=== PATIENT | female | born 1960 | race American Indian/Alaskan Native ===

== ENCOUNTER 2017-07-23 14:29 | Emergency (ER) | payer MEDICAID ==
[2017-07-23] MEDS ORDERED: MethylPREDNISolone 40 mg Vial IVP STA (16:08)
[2017-07-23] MEDS ORDERED: DiphenhydrAMINE 50 mg/ml Inj IVP STA (16:08)
[2017-07-23] MEDS ORDERED: MethylPREDNISolone 40 mg Vial ONE (16:30)
[2017-07-23] MEDS ORDERED: DiphenhydrAMINE 50 mg/ml Inj ONE (16:30)
[2017-07-23 16:39] LABS: BASO % 0.5 % (0.0-2.0); EOS # 0.2 K/uL (0.0-0.7); EOS % 3.6 % (0.0-4.0); HEMOGLOBIN 12.9 g/dL (11.0-16.0); LYMPH # 1.2 K/uL (1.0-4.3); LYMPH % 21.8 % (20.0-40.0); MEAN CELL VOLUME 88.2 fL (81.0-99.0); MEAN CORPUSCULAR HEMOGLOBIN 29.9 pg (27.0-31.0); MEAN CORPUSCULAR HGB CONC 33.9 g/dL (33.0-37.0); MEAN PLATELET VOLUME 8.3 fL (7.2-11.7); MONO # 0.5 K/uL (0.0-0.8); MONO % 8.3 % (0.0-10.0); NEUT # 3.8 K/uL (1.8-7.0); NEUT % 65.8 % (50.0-75.0); NRBC % 0.1 % (0.0-2.0); RBC 4.31 Mil/uL (3.80-5.20); RED CELL DISTRIBUTION WIDTH 14.9 % (11.5-14.5); WHITE BLOOD COUNT 5.7 K/uL (4.8-10.8)
[2017-07-23 16:49] LABS: ALB/GLOB RATIO 1.2 (1.0-2.1); ALBUMIN 3.8 g/dL (3.5-5.0); ALT/SGPT 24 U/L (9-52); AST/SGOT 24 U/L (14-36); BLOOD UREA NITROGEN 12 mg/dL (7-17); CALCIUM 9.8 mg/dl (8.6-10.4); GFR AFRICAN-AMERICAN > 60; GFR NON-AFRICAN AMERICAN 52
[2017-07-23] MEDS ORDERED: Potassium Chloride 20 mEq/15 ml LIQ UD PO STA (17:39)
--- NOTE | 2017-07-23 17:43 | C.PDOC ---
History Of Present Illness 57-year-old female, presents to the emergency department with complaints of dizziness intermittently for the past few days. Patient also notes her arms and legs feel "heavy." Patient also complains of an itchy, foul smelling, and weeping rash that started a few days ago, after she ate "bad potato salad." Patient also notes she recently used a cheap hair dye, which may have attributed to the symptoms. Denies fevers, chills, chest pain, shortness of breath, back pain, numbness/weakness, slurred speech, visual changes, or any other associated symptoms. Time Seen by Provider: 07/23/17 15:12 Chief Complaint (Nursing): Dizziness/Lightheaded History Per: Patient History/Exam Limitations: no limitations Past Medical History Reviewed: Historical Data, Nursing Documentation, Vital Signs Vital Signs: Last Vital Signs Temp 98.1 F 07/23/17 19:10 Pulse 88 07/23/17 19:10 Resp 16 07/23/17 19:10 BP 145/82 07/23/17 19:10 Pulse Ox 99 07/25/17 03:02 - Medical History PMH: HTN Family History: States: [place] (Mother (70s) and Sister (60s)) - Social History Hx Tobacco Use: No Hx Alcohol Use: No Hx Substance Use: No - Immunization History Hx Tetanus Toxoid Vaccination: No Hx Influenza Vaccination: No Hx Pneumococcal Vaccination: No Review Of Systems Except As Marked, All Systems Reviewed And Found Negative. Constitutional: Negative for: Fever, Chills Cardiovascular: Negative for: Chest Pain, Palpitations Respiratory: Negative for: Shortness of Breath Gastrointestinal: Negative for: Nausea, Vomiting Skin: Positive for: Rash Neurological: Positive for: Dizziness. Negative for: Weakness, Numbness, Confusion, Seizures, Headache Physical Exam - Physical Exam Appears: Non-toxic, No Acute Distress Skin: Warm, Dry, Rash (There is an erythematous rash to patients posterior neck , chest and salp area with serous fluid from scalp. ) Head: Atraumatic, Normacephalic Eye(s): bilateral: Normal Inspection, left: Other ([place]) Nose: Normal Oral Mucosa: Moist Lips: Normal Appearing Throat: No Erythema, No Exudate Neck: Normal ROM, Supple Chest: Symmetrical Cardiovascular: Rhythm Regular, No Friction Rub, No Murmur Respiratory: Normal Breath Sounds, No Accessory Muscle Use, No Rales, No Rhonchi , No Stridor, No Wheezing Gastrointestinal/Abdominal: Soft, No Tenderness Back: Normal Inspection, No CVA Tenderness Extremity: Normal ROM, No Swelling Neurological/Psych: Oriented x3, Normal Speech, Normal Motor ED Course And Treatment - Laboratory Results Result Diagrams: 07/23/17 16:35 07/23/17 16:35 O2 Sat by Pulse Oximetry: 99 Pulse Ox Interpretation: Normal Against Medical Advice - AMA Patient Left Against Medical Advice: The patient declines admission to the hospital and wishes to leave the Emergency Department. This action is against my medical advice. This decision was made with informed refusal. The patient was told that admission to the hospital is necessary. Explanation of the reasons why were discussed. The risks of leaving were explained to the patient and include, but are not limited to, worsening of known or currently unknown conditions, permanent disability and from undiagnosed or untreated conditions. The patient has the capacity to make this informed decision and understands my explanation of the current medical problem and risks of leaving. The patient voluntarily accepts these risks and signed an AMA form documenting our conversation. The patient was given the opportunity to ask questions and reconsider. The patient was encouraged to return to the Emergency Department at any time for further care. Medical Decision Making Medical Decision Making: Plan: * CMP * CBC * Benadryl, IVF, Reglan, Solu-Medrol * Reassess and Disposition Potassium is low at 2.6 and admission is recommended. EKG is SR at 113bpm, with normal ST-T waves. Rash appears most likely urticarial secondary to hair dye allergic reaction. The patient reports that she feels improved but does not want to stay for admission. Risks and benefits were discussed with the patient and she still refuses. On re-exam, the patient reports improvement of symptoms. Lungs are CTA, heart is RRR, abdomen is soft, non-tender and is tolerating PO well. Ambulatory in the ED with steady gait. Follow up with the medical doctor within 1-2 days without fail. Return if worsened. Disposition - Disposition Referrals: Mega Martinez MD [Medical Doctor] - Disposition: AGAINST MEDICAL ADVICE Disposition Time: 18:35 Condition: GOOD Additional Instructions: TAKE YOUR POTASSIUM WITHOUT FAIL. Follow up with the medical doctor within 1-2 days without fail. Return if worsened. Prescriptions: DiphenhydrAMINE [Benadryl] 25 mg PO QID #28 cap Hydrocortisone 1% Oint [Cortizone 1% Oint] 1 appl TP BID #3 tube Meclizine HCl 25 mg PO Q8 PRN #30 tablet PRN Reason: Dizziness predniSONE [Prednisone] 20 mg PO BID #10 tab Instructions: Hypokalemia, Dizziness, Nonvertigo, (DC) Forms: [employer] (Mongolian) - Clinical Impression Clinical Impression: Dizziness, Hypokalemia - Scribe Statement The provider has reviewed the documentation as recorded by the Scribe (Rose Morales) All medical record entries made by the Scribe were at my direction and personally dictated by me. I have reviewed the chart and agree that the record accurately reflects my personal performance of the history, physical exam, medical decision making, and the department course for this patient. I have also personally directed, reviewed, and agree with the discharge instructions and disposition.
[2017-07-23] MEDS ORDERED: Potassium Chloride 20 mEq ER Tab PO ONE (17:51)
[2017-07-23] MEDS ORDERED: Potassium Chloride 20 mEq/15 ml LIQ UD ONE (17:55)
[2017-07-23 19:25] VITALS: BP 145/82; PULSE 88; RESP 16; TEMP 98.1
[2017-07-25 03:00] VITALS: O2SAT 99
--- NOTE | 2017-07-26 12:48 | CARD ---
APPROVED REPORT EKG Measurement Heart [id number] <Conclusion> Sinus tachycardia Otherwise normal ECG
== END 2017-07-23 19:37 | disposition left against medical advice (07) ==
LOC: C.ER 14:29
DX: R42 Dizziness and giddiness (principal); E87.6 Hypokalemia; I10 Essential (primary) hypertension
CPT/HCPCS: 80053; 82948; 85025; 93005; 96361; 96374; 96375; 99285; J1200; J2765; J2920; J3480